=== PATIENT | female | born 1975 | race Caucasian/White ===

== ENCOUNTER 2023-04-03 06:00 | Outpatient (RCR) | payer OTHER, SELFPAY | END 2023-05-03 23:59 | disposition home or self-care (01) | LOC: GPT 06:00 | PROVIDERS: Visit Provider Nurse Practitioner Family | DX: M54.16 Radiculopathy, lumbar region (principal) | CPT/HCPCS: 97161 ==

== ENCOUNTER → 2023-05-20 14:17 | Outpatient (BNVA) | payer OTHER, SELFPAY | PROVIDERS: Visit Provider Family Medicine | DX: E11.9 Type 2 diabetes mellitus without complications (principal); E11.65 Type 2 diabetes mellitus with hyperglycemia | CPT/HCPCS: 83036 ==

== ENCOUNTER 2023-08-25 06:00 | Outpatient (RCR) | payer OTHER, SELFPAY | END 2023-09-02 23:59 | disposition home or self-care (01) | LOC: GPT 06:00 | PROVIDERS: PCP Family Medicine; Visit Provider Physician Assistant | DX: M54.50 Low back pain, unspecified (principal) | CPT/HCPCS: 97162 ==

== ENCOUNTER 2023-09-03 06:00 | Outpatient (RCR) | payer OTHER, SELFPAY | END 2023-10-03 23:59 | disposition home or self-care (01) | LOC: GPT 06:00 | PROVIDERS: PCP Family Medicine; Visit Provider Physician Assistant | DX: M54.50 Low back pain, unspecified (principal) | CPT/HCPCS: 97110; 97112; 97140 ==